=== PATIENT | male | born 1930 | race Caucasian/White ===

== ENCOUNTER 2017-12-16 11:17 | Inpatient (IN) | payer MEDICARE, OTHER ==
[~2017-12-16] VITALS: Ht 172.7 cm; Wt 104.1 kg
[~2017-12-16 11:17] MED LIST: ADULT LOW DOSE81 MG PO; ALEVE220 MG PO; ASPIRIN EC81 M1 PO; Alprazolam PO; CARVEDILOL3.125 MG PO; CEPHALEXIN 500500 M3 PO; COLACE 100 MG100 MG PO; COREG PO; COREG6.25 MG PO; DOXYCYCLINE HY100 M3 PO; FISH OIL 1,0001 EAC5 PO; FUROSEMIDE 40 M40 M1 PO; HYDROCODON-ACE1 EAC7 PO; HYDROXYCHLOROQ200 M1 PO; IRON325 PO; KEFLEX500 MG PO; LOVASTAT20 PO; METHOTREXATE; MEVACOR10 MG PO; MOBIC7.5 MG PO; MULTI VITAMIN1 EACH PO; NITROSTAT0.4 MG SUBLING; NORCO 5-325 TA1 EACH PO; ODORLESS GARLI500 MG PO; OMEPRAZOLE 20 M20 M1 PO; OMEPRAZOLE20 MG PO; OXYCODONE HCL5 M1 PO; POTASSIUM20; POTASSIUM20 PO; PRILOSEC40 MG PO; VENTOLIN17 GM INH; XANAX 0.5 MG0.5 M1 PO; XARELTO10 M1 PO; ZPAK PO
[2017-12-16 11:19] VITALS: BP 156/70
[2017-12-16 11:48] LABS: ABSOLUTE EOSINOPHILS 0.1 thou/uL (0.0-0.7); ABSOLUTE LYMPHOCYTES 1.6 thou/uL (0.8-5.3); ABSOLUTE MONOCYTES 0.4 thou/uL (0.0-1.2); ABSOLUTE NEUTROPHILS 2.8 thou/uL (1.6-8.1); BASOPHILS 0.7 %; HEMATOCRIT 35.6 % (42.0-52.0); HEMOGLOBIN 12.1 gm/dL (14.0-18.0); LYMPHOCYTES 31.6 %; MCH 33.5 pg (26.0-34.0); MCV 98.7 fL (80.0-100.0); MONOCYTES 8.3 %; MPV 7.9 fl. (7.2-11.1); NUCLEATED RBCS 0 /100WBC; PLATELET COUNT* 159 thou/uL (150-400); POLYS 56.4 %; RBC 3.61 mil/uL (4.50-6.00); RDW-CV 12.9 % (10.5-14.5); WBC 4.9 thou/uL (4.0-11.0)
[2017-12-16 11:54] LABS: ANION GAP 4 mmol/L (7-16); BUN 27 mg/dL (7-18); CHLORIDE 108 mmol/L (98-107); CO2 30 mmol/L (21-32); CREATININE 1.2 mg/dL (0.6-1.3); GLUCOSE 101 mg/dL (70-99); POTASSIUM 4.8 mmol/L (3.5-5.1); SODIUM 142 mmol/L (136-145)
[2017-12-16 11:55] LABS: APTT 26.6 Seconds (25.0-31.3); INR 1.1
[2017-12-16 12:05] LABS: ALBUMIN 3.6 g/dL (3.4-5.0); ALKALINE PHOSPHATASE 44 U/L (46-116); LIPASE 113 U/L (73-393); NT-PRO BRAIN NAT PEPTIDE 449 pg/mL (<300); SGOT 36 U/L (15-37); SGPT 47 U/L (30-65); TOTAL BILIRUBIN 0.7 mg/dL (<0.1-1.0); TOTAL PROTEIN 6.4 g/dL (6.4-8.2); TROPONIN-I LEVEL <0.06 ng/mL (<0.06)
--- NOTE | 2017-12-16 13:58 | EKG ---
[place] [address] ELECTROCARDIOGRAM REPORT Name: JESSI VILLEDA Room: [place] [address] ADM IN [facility].#: [id number] Admission: 12/16/17 Attend Phys: Kristie Layton Discharge: Date of : 34 Report #: [id number] THIS REPORT FOR: //name// [facility] ED Test Date: 2017-12-16 Test Time: 11:21:00 Pat Name: JESSI VILLEDA Department: Room: Gender: Superintendent Drivers: Rony PHIPPS : 1930 Requested By: Yaya Burkett Order Number: [id number] MD: Conor Ledezma Measurements Intervals [place] Rate: 70 P: ID: QRS: 64 QRSD: 109 T: 89 QT: 388 QTc: 419 Interpretive Statements sinus rhythm with first degree AV block Consider anterior infarct Nonspecific T abnormalities, lateral leads Baseline wander in lead(s) III Compared to ECG 08/03/2013 09:59:49 Myocardial infarct finding still present T-wave abnormality still present Electronically Signed On 12-16-2017 13:58:29 CDT by Conor Ledezma [email or web address] <ELECTRONICALLY SIGNED> By: Conor Ledezma MD, [facility] 12/16/17 1358 1121 1121 Conor Ledezma MD, [facility] /EPI
[2017-12-16 14:35] VITALS: BP 166/67
[2017-12-16 15:34] VITALS: BP 143/63
--- NOTE | 2017-12-16 15:43 | NUR ---
PT BROUGHT TO THE FLOOR AT 1440. OPT ORIENTED TO THE UNIT AND PLACED ON REAL ESTATE UTILIZATION OFFICER. PT VSS ON ROOM AIR AND NO C/O PAIN OR DISCOMFORT. NURSING ASSESSMENTSA COMPLETED AND CHATRED. NURSING WILL CONTINUR TO MONITOR FOR COMFORT AND SAFTEY.
[2017-12-16 16:08] VITALS: BP 143/64
--- NOTE | 2017-12-16 18:42 | NUR ---
ASSUMED CARE OF PT AFTER REPORT AT 1820. PT ALERT AN ORIENTEDX4. VSS. PHYSICALL ASSESSMENT COMPLETED. THIS NURSE AGREES WITH PREVIOUS NURSE ASSESSMENT. PT ON RA. PT IV LINE PATENT IN INTACT. PT UP ADLIB. SR 1ST DEGREE ON TELE. FOR CARDIAC STRESS TEST KIMMIE. PT INSTRUCTED NPO POST MIDNIGHT.PT DENIES ANY PAIN OR COMPLAINS AT THIS TIME.CALL LIGHT WITHIN REACH. WILL CONTINUE TO MONITOR PT.
[2017-12-16 20:00] VITALS: BP 124/72
[2017-12-16 23:30] VITALS: BP 125/56
--- NOTE | 2017-12-16 23:31 | NUR ---
RECEIVED REPORT AND ASSUMED CARE OF PATIENT AT 1930. EDUCATIONAL AIDE IN PLACE TRACING SR 1AVB. ASSESSMENT AND VITALS COMPLETED CHARTED, VSS ON ROOM AIR. PATIENT A&OX4. PATIENT DENIES CHEST PAIN. GOAL IS TO REMAIN FREE OF CHEST PAIN/DISCOMFORT. PATIENT TO HAVE STRESS TEST AND ECHO TOMORROW, NPO AFTER MIDNIGHT. PATIENT VERBALIZES UNDERSTANDING OF PLAN OF CARE. CALL LIGHT WITHIN REACH
[2017-12-17 03:30] VITALS: BP 121/56
--- NOTE | 2017-12-17 05:24 | NUR ---
PATIENT PROGRESSING TOWARDS GOALS: PATIENT REMAINS FREE OF CHEST PAIN/DISCOMFORT THROUGHOUT SHIFT. VSS ON ROOM AIR. PATIENT NPO FOR STRESS TEST THIS AM. PATIENT AWARE AND VERBALIZES UNDERSTANDING. HOURLY ROUNDING OBSERVED. CALL LIGHT WITHIN REACH
[2017-12-17 08:00] VITALS: BP 125/60
--- NOTE | 2017-12-17 11:00 | NUR ---
ASSUMED CARE OF PT AFTER REPORT AT 0730. PT A&OX4. VSS. PHYSICAL ASSESSMENT COMPLETED AND CHARTED. PT ON RA WITH 97% O2 SAT. SR 1ST DEG ON TELE. PT IV LINE PATENT AND INTACT. PT UP ADLIB. FOR STRESS TEST TODAY. DENIES ANY PAIN OR COMPLAINS AT THIS TIME. CALL LIGHT WITHIN REACH. WILL CONTINUE TO MONITOR PT.
[2017-12-17 11:10] VITALS: BP 144/65
--- NOTE | 2017-12-17 11:54 | NUR ---
Pt is A&O. Resides at home with his . Independent with ADLS. Pt has a walker at home that he can use if needed. Hx of outpt therapy. No hx of SNF. Supportive family. Pt scheduled to have a stress test and Echo today. Pt's goal is to return home once medically stable. Following.
--- NOTE | 2017-12-17 14:26 | 2DMMODE ---
[place] [address] 2 D/M-MODE ECHOCARDIOGRAM Name: JESSI VILLEDA Room: [address] IN [facility]#: [id number] Admission: 12/16/17 Attend Phys: Wilman Michaels Discharge: Date of : 34 Date of Service: 12/17/17 1425 Report #: [id number] THIS REPORT FOR: //name// APPROVED REPORT Study performed: 12/17/2017 10:15:25 EXAM: Comprehensive 2D, Doppler, and color-flow Echocardiogram Patient Location: In-Patient Room #: [facility] Status: routine BSA: 2.11 HR: 70 bpm BP: 121/56 mmHg Rhythm: NSR Other Information Study Quality: Fair Indications Chest Pain 2D Dimensions LVEF(%): 45.53 (>50%) IVSd: 13.96 (7-11mm) LVOT Diam: 18.54 (18-24mm) LVDd: 46.16 mm PWd: 10.75 (7-11mm) Ascending Ao: 30.70 (22-36mm) LVDs: 35.73 (25-40mm) Aortic Root: 34.51 mm Hawkins's LVEF: 45.53 % Volumes Left Atrial Volume (Systole) LA ESV Index: 45.00 mL/m2 Aortic Valve AoV Peak Ugo.: 2.18 m/s AO Peak Gr.: 19.00 mmHg LVOT Max P.29 mmHg AO Mean Gr.: 10.16 mmHg LVOT Mean P.96 mmHg LVOT Max V: 1.15 m/s AO V2 VTI: 47.25 cm LVOT Mean V: 0.80 m/s BRIJESH (VTI): 1.44 cm2 LVOT V1 VTI: 25.25 cm Mitral Valve E/A Ratio: 1.17 [place] [address] 2 D/M-MODE ECHOCARDIOGRAM Name: JESSI VILLEDA Room: [address] IN [facility]#: [id number] Admission: 12/16/17 Attend Phys: Wilman Michaels Discharge: Date of : 34 Date of Service: 12/17/17 1425 Report #: [id number] MV Decel. Time: 229.99 ms MV E Max Ugo.: 0.84 m/s MV PHT: 66.70 ms MVA (PHT): 3.30 cm2 TDI E/Lateral E': 8.40 E/Medial E': 9.33 Medial E' Ugo.: 0.09 m/s Lateral E' Ugo.: 0.10 m/s Pulmonary Valve PV Peak Ugo.: 1.12 m/s PV Peak Gr.: 5.06 mmHg Left Ventricle The left ventricle is normal size. akinesis noted of the apex Mild concentric left ventricular hypertrophy. Left ventricular systolic function is mildly decreased. LVEF is 40-45%. The left ventricular diastolic function is normal. Right Ventricle The right ventricle is normal size. The right ventricular systolic function is normal. Atria Left atrium is moderately dilated. The right atrium size is normal. Aortic Valve Bioprosthetic aortic valve is present. Mild aortic regurgitation. Mild aortic stenosis. Mitral Valve The mitral valve is normal in structure. Mild mitral regurgitation. No evidence of mitral valve stenosis. Tricuspid Valve The tricuspid valve is normal in structure. Unable to assess PA pressure. Trace tricuspid regurgitation. Pulmonic Valve Pulmonic valve is not well visualized. There is no pulmonic valvular regurgitation. Great Vessels The aortic root is normal in size. IVC is normal in size and collapses with >50% [place] [address] 2 D/M-MODE ECHOCARDIOGRAM Name: JESSI VILLEDA Room: [address] IN [facility]#: [id number] Admission: 12/16/17 Attend Phys: Wilman Michaels Discharge: Date of : 34 Date of Service: 12/17/17 1425 Report #: [id number] Pericardium There is no pericardial effusion. <Conclusion> akinesis noted of the apex Mild concentric left ventricular hypertrophy. LVEF is 40-45%. Left atrium is moderately dilated. Bioprosthetic aortic valve is present. Mild aortic stenosis. Mild aortic regurgitation. Mild mitral regurgitation. <ELECTRONICALLY SIGNED> By: Conor Ledezma MD, FACC 12/17/17 1425 1425 1425 Conor Ledezma MD, FACC /INF
[2017-12-17 15:27] VITALS: BP 159/53
[2017-12-17 17:16] VITALS: BP 159/53
--- NOTE | 2017-12-17 18:04 | CARDNUC ---
[place] [address] CARDIAC NUCLEAR IMAGING REPORT Name: JESSI VILLEDA Room: [address] IN [facility]#: [id number] Admission: 12/16/17 Attend Phys: Wilman Michaels Discharge: Date of : 34 Date of Service: 12/17/17 1804 Report #: [id number] THIS REPORT FOR: //name// APPROVED REPORT Study performed: 12/16/2017 16:13:00 Indication: chest pain Patient Location: In-Patient Room #: 209 Stress Tech: Mary Ann Barrett Stress Nurse: Yohana Asif RN Ht: 5 ft 8 in Wt: 216 lbs BSA: 2.11 m2 BMI: 32.83 Medical History Medical History: heart valve replacement, mi cabg, pci Medications: furosemide, [id number] Allergies: nkda Cardiac Risk Factors: age, family hx Previous Cardiac Procedures: cabg, valve replacement, pci Exercise History: Sedentary Resting Data Rest SPECT myocardial perfusion imaging was performed in supine position 30 minutes following the intravenous injection of 10.8 mCi of Tc-99m Sestamibi. Time of rest injection: 15:15 The images were gated to evaluate regional wall motion and calculate left ventricular ejection fraction. Administration Route: IV Administration Site: Left Arm Pharmacologic Stress Pharmacologic stress test was performed by injecting Regadenoson 0.4 mg IV push over 10-15 seconds immediately followed by the intravenous injection of 33.3 mCi of Tc-99m Sestamibi. Time of stress injection: 16:35 Administration Route: IV Administration Site: Left Arm Heart Rate at time of stress injection: 103 bpm. Gated Stress SPECT was performed 40 minutes after stress injection. The images were gated to evaluate regional [place] [address] CARDIAC NUCLEAR IMAGING REPORT Name: JESSI VILLEDA Room: [address]#: [id number] Admission: 12/16/17 Attend Phys: Wilman Michaels Discharge: Date of : 34 Date of Service: 12/17/17 1804 Report #: [id number] left ventricular ejection fraction. Stress Test Details Stress Test: Pharmacologic stress testing performed using 0.4 mg of regadenoson per 5 mL given IV over 10 seconds. Reason for pharmacologic stress test: physical limitation. HR Resting HR: 74 bpm Max Heart Rate (APMHR): 135 bpm Max HR Achieved: 103 bpm Target HR (85% APMHR): 114 bpm % of APMHR: 76 Recovery HR: 90 bpm BP Resting BP: 152/71 mmHg Max BP: 109/68 mmHg ECG Resting ECG: Sinus Rhythm Stress ECG: Sinus Tachycardia ST Change: None Arrhythmia: None Recovery ECG: Sinus Rhythm Recovery ST Change: None Recovery Arrhythmia: None Clinical Reason for Termination: Completed protocol Exercise duration: 0 min sec Exercise capacity: 1 METs The patient had no significant symptoms with Lexiscan infusion. Stress ECG Conclusion The baseline 12-lead electrocardiogram shows sinus rhythm without significant ST segment abnormality. EKGs obtained during and post Lexiscan infusion show sinus rhythm with no significant ST or T wave changes when compared to baseline. There were no stress-induced arrhythmias. Study Quality Study: Good Artifact: No artifact Study Data At rest, the left ventricular ejection fraction was 33%.. [place] [address] CARDIAC NUCLEAR IMAGING REPORT Name: JESSI VILLEDA Room: [address]#: [id number] Admission: 12/16/17 Attend Phys: Wilman Michaels Discharge: Date of : 34 Date of Service: 12/17/17 1804 Report #: [id number] Post stress, the left ventricular ejection was 39%.. TID = 0.97. Perfusion Perfusion images show a moderate size severe intensity defect that is fixed involving the entire apex. No other significant fixed or reversible defects identified. Wall Motion Gated images show akinesis of the apex. There is hypokinesis of the septum. 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 There is no evidence of ongoing ischemia. Left ventricular systolic function appears severely decreased with wall motion abnormalities as outlined above. Findings consistent with ischemic cardiomyopathy. This is a moderate risk study based on left ventricular systolic dysfunction. <Conclusion> The baseline 12-lead electrocardiogram shows sinus rhythm without significant ST segment abnormality. EKGs obtained during and post Lexiscan infusion show sinus rhythm with no significant ST or T wave changes when compared to baseline. There were no stress-induced arrhythmias. <ELECTRONICALLY SIGNED> By: Hernan Shukla MD, FACC 12/17/171803 03 03 Hernan Shukla MD, FACC /INF
--- NOTE | 2017-12-17 18:53 | NUR ---
STRESS TEST DONE-CAME NEGATIVE. DISCHARGE ORDER RECEIVED. IV LINE AND TRUCK LOADER DISCONTINUED. DISCHARGE EDUCATION GIVEN. COMMUNICATES UNDERSTANDING. PT WAITING FOR TO RETURN. REPORT GIVEN TO INCOMING SHIFT.
== END 2017-12-17 19:50 | disposition home or self-care (01) | DRG 293 ==
LOC: M.ERS 11:17 → M.TBA-ER 13:12 → M.2W 13:12
PROVIDERS: Emergency Medicine Emergency Medical Services; ADMIT Internal Medicine
DX: I50.43 Acute on chronic combined systolic (congestive) and diastolic (congestive) heart failure (principal); K21.9 Gastro-esophageal reflux disease without esophagitis; Z96.1 Presence of intraocular lens; I25.10 Atherosclerotic heart disease of native coronary artery without angina pectoris; E78.5 Hyperlipidemia, unspecified; I10 Essential (primary) hypertension; Z95.1 Presence of aortocoronary bypass graft; Z95.2 Presence of prosthetic heart valve; I25.2 Old myocardial infarction; Z85.828 Personal history of other malignant neoplasm of skin; Z98.42 Cataract extraction status, left eye; Z98.41 Cataract extraction status, right eye; Z79.82 Long term (current) use of aspirin; Z79.899 Other long term (current) drug therapy; Z95.5 Presence of coronary angioplasty implant and graft; Z82.49 Family history of ischemic heart disease and other diseases of the circulatory system

== ENCOUNTER 2018-07-18 11:47 | Inpatient (IN) | payer MEDICARE, OTHER ==
[~2018-07-18] VITALS: Ht 172.7 cm; Wt 107.0 kg
[~2018-07-18 11:47] MED LIST changes: +ODORLESS GARL1250 MG PO; -ODORLESS GARLI500 MG PO
[2018-07-18 11:57] VITALS: BP 139/61
[2018-07-18] MEDS ORDERED: FLOMAX0.4 MG PO (12:08)
[2018-07-18 12:39] LABS: ABSOLUTE EOSINOPHILS 0.1 thou/uL (0.0-0.7); ABSOLUTE LYMPHOCYTES 1.5 thou/uL (0.8-5.3); ABSOLUTE MONOCYTES 0.3 thou/uL (0.0-1.2); ABSOLUTE NEUTROPHILS 2.5 thou/uL (1.6-8.1); BASOPHILS 0.8 %; EOSINOPHILS 2.9 %; HEMATOCRIT 37.7 % (42.0-52.0); LYMPHOCYTES 32.7 %; MCH 33.9 pg (26.0-34.0); MCHC 34.5 g/dL (28.0-37.0); MCV 98.2 fL (80.0-100.0); MONOCYTES 7.6 %; MPV 7.8 fl. (7.2-11.1); NUCLEATED RBCS 0 /100WBC; PLATELET COUNT* 148 thou/uL (150-400); RBC 3.84 mil/uL (4.50-6.00); RDW-CV 13.2 % (10.5-14.5); WBC 4.5 thou/uL (4.0-11.0)
[2018-07-18 12:47] LABS: CALCIUM 8.9 mg/dL (8.5-10.1); CREATININE 1.1 mg/dL (0.6-1.3); POTASSIUM 4.5 mmol/L (3.5-5.1)
[2018-07-18 12:49] LABS: APTT 26.6 Seconds (25.0-31.3); PROTIME 10.7 Seconds (9.20-11.50)
[2018-07-18 12:58] LABS: ALBUMIN 3.2 g/dL (3.4-5.0); TOTAL BILIRUBIN 0.5 mg/dL (<0.1-1.0); TOTAL PROTEIN 6.5 g/dL (6.4-8.2)
[2018-07-18 16:31] VITALS: BP 148/73
[2018-07-18 17:00] VITALS: BP 167/65
--- NOTE | 2018-07-18 17:41 | NUR ---
PATIENT ADMITTED TO ROOM 305 VIA CART FROM ER AT 1650. PATIENT A/O X 4. ADMISSION ASSESSMENT AND HISTORY OBTAINED. VITALS STABLE ON ROOM AIR. ORIENTED NO OPEN WOUNDS OR REDNESS NOTED TO BILATERAL LOWER LEGS, PITTING EDEMA NOTED TO LEFT LEG. PULSES WEAK TO BILATERAL FEET. VANCOMYCIN CURRENTLY INFSUSING. ORTHO CONSULT NOTED. FAMILY AT BEDSIDE. ORIENTED TO ROOM AND ENVIRONMENT. CALL LIGHT WITHIN REACH. WILL CONTINUE WITH PLAN OF CARE.
[2018-07-18 20:00] VITALS: BP 135/71
[2018-07-19 04:49] LABS: ABSOLUTE EOSINOPHILS 0.2 thou/uL (0.0-0.7); ABSOLUTE MONOCYTES 0.5 thou/uL (0.0-1.2); ABSOLUTE NEUTROPHILS 2.3 thou/uL (1.6-8.1); BASOPHILS 0.4 %; EOSINOPHILS 3.3 %; HEMATOCRIT 35.8 % (42.0-52.0); HEMOGLOBIN 12.4 gm/dL (14.0-18.0); LYMPHOCYTES 39.4 %; MCH 34.2 pg (26.0-34.0); MCHC 34.5 g/dL (28.0-37.0); MCV 99.2 fL (80.0-100.0); MONOCYTES 9.7 %; MPV 8.6 fl. (7.2-11.1); NUCLEATED RBCS 0 /100WBC; PLATELET COUNT* 135 thou/uL (150-400); POLYS 47.2 %; RBC 3.61 mil/uL (4.50-6.00)
[2018-07-19 05:00] LABS: CALCIUM 8.7 mg/dL (8.5-10.1); CREATININE 1.1 mg/dL (0.6-1.3); POTASSIUM 4.5 mmol/L (3.5-5.1)
--- NOTE | 2018-07-19 05:37 | NUR ---
PT SLEPT ON AND OFF THIS SHIFT. ASSESSMENT DOCUMENTED. MEDS GIVEN PER E-AUG. PT REPORTED PAIN ONLY WITH WALKING. IV PATENT, ABX INFUSED. PT TAKEN TO XRAY AT BEGINING OF SHIFT. WILL CONTINUE WITH PLAN OF CARE.
[2018-07-19 08:12] VITALS: BP 136/63
--- NOTE | 2018-07-19 11:11 | NUR ---
SW met with pt to complete initial assessment, introduce self, and SW role. Pt alert, oriented, pleasant. Pt lives at home with his . Pt had a RW at one time but no longer has it and has a cane if needed for ambulation. Pt has hx of OP therapy. Pt does not anticipate any dc needs at this time. SW to continue to follow to assist with safe dc planning.
[2018-07-19 11:50] VITALS: BP 161/77
[2018-07-19] MEDS ORDERED: XANAX1 MG PO (12:30)
[2018-07-19 13:11] VITALS: BP 161/77
--- NOTE | 2018-07-19 13:52 | NUR ---
ASSESSMENT COMPLETE. PT ALERT AND ORIENTED X4. PT REPORTS PAIN WITH AMBULATING, DENIES NEED FOR PAIN MEDICATION THIS AM. VASCULAR ROUNDED AND NOT DOING ANYTHING AT THIS TIME. PULSES STRONG WITH DOPPLER. PT GIVEN DISCHARGE TO HOME, DISCHARGE INSTRUCTIONS GIVEN AND PT VERBALIZES UNDERSTANDING. PRESCRIPTION GIVEN. IV TAKEN OUT WITHOUT ANY COMPLICATIONS. PT IS UP STANDBY WITH CANE. ALL BELONGINGS SENT WITH PT. SEE ASSESSMENT AND VITALS FOR OTHER DETAILS.
== END 2018-07-19 14:00 | disposition home or self-care (01) | DRG 603 ==
LOC: M.ERS 11:47 → M.TBA-ER 12:58 → M.3W 12:58
PROVIDERS: Nurse Practitioner Family; ADMIT Internal Medicine
DX: L03.116 Cellulitis of left lower limb (principal); M19.90 Unspecified osteoarthritis, unspecified site; I73.9 Peripheral vascular disease, unspecified; I87.2 Venous insufficiency (chronic) (peripheral); K21.9 Gastro-esophageal reflux disease without esophagitis; I25.10 Atherosclerotic heart disease of native coronary artery without angina pectoris; Z96.652 Presence of left artificial knee joint; M47.896 Other spondylosis, lumbar region; I10 Essential (primary) hypertension; Z96.1 Presence of intraocular lens; Z95.1 Presence of aortocoronary bypass graft; Z95.2 Presence of prosthetic heart valve; I25.2 Old myocardial infarction; Z85.828 Personal history of other malignant neoplasm of skin; Z79.82 Long term (current) use of aspirin; Z79.899 Other long term (current) drug therapy; Z98.42 Cataract extraction status, left eye; Z98.41 Cataract extraction status, right eye

== ENCOUNTER 2020-03-15 22:27 | Inpatient (IN) | payer MEDICARE, OTHER ==
[~2020-03-15] VITALS: Ht 167.6 cm; Wt 102.5 kg
[~2020-03-15 22:27] MED LIST changes: +FLOMAX0.4 MG PO; +XANAX1 MG PO
[2020-03-15 22:34] VITALS: BP 153/70
[2020-03-15] MEDS ORDERED: PLAQUENIL200 MG PO (22:45)
[2020-03-15 23:41] LABS: URINE BILIRUBIN NEGATIVE (Negative); URINE BLOOD NEGATIVE (Negative); URINE CLARITY CLEAR; URINE COLOR YELLOW; URINE GLUCOSE-RANDOM NEGATIVE (Negative); URINE KETONES NEGATIVE (Negative); URINE LEUKOCYTES-REFLEX NEGATIVE (Negative); URINE NITRITE-REFLEX NEGATIVE (Negative); URINE PROTEIN NEGATIVE (Negative); URINE SPECIFIC GRAVITY 1.025 (1.005-1.030); URINE UROBILINOGEN 0.2 E.U./dl (0.2-1.0)
[2020-03-15 23:54] LABS: ABSOLUTE BASOPHILS 0.1 thou/uL (0.0-0.2); ABSOLUTE EOSINOPHILS 0.1 thou/uL (0.0-0.7); ABSOLUTE LYMPHOCYTES 1.7 thou/uL (0.8-5.3); ABSOLUTE MONOCYTES 0.4 thou/uL (0.0-1.2); ABSOLUTE NEUTROPHILS 3.3 thou/uL (1.6-8.1); BASOPHILS 1.1 %; EOSINOPHILS 2.5 %; HEMATOCRIT 39.7 % (42.0-52.0); LYMPHOCYTES 30.6 %; MCH 34.1 pg (26.0-34.0); MCHC 35.2 g/dL (28.0-37.0); MCV 96.9 fL (80.0-100.0); MONOCYTES 7.5 %; MPV 7.4 fl. (7.2-11.1); NUCLEATED RBCS 0 /100WBC; PLATELET COUNT* 153 thou/uL (150-400); POLYS 58.3 %; RBC 4.09 mil/uL (4.50-6.00); RDW-CV 13.6 % (10.5-14.5); WBC 5.7 thou/uL (4.0-11.0)
[2020-03-16 00:04] LABS: CALCIUM 8.9 mg/dL (8.5-10.1); CREATININE 1.4 mg/dL (0.6-1.3); POTASSIUM 4.7 mmol/L (3.5-5.1)
[2020-03-16 00:05] LABS: APTT 25.2 Seconds (25.0-31.3); PROTIME 10.7 Seconds (9.20-11.50)
[2020-03-16 00:08] LABS: ALBUMIN 3.7 g/dL (3.4-5.0); TOTAL BILIRUBIN 0.5 mg/dL (<0.1-1.0); TOTAL PROTEIN 6.7 g/dL (6.4-8.2)
[2020-03-16 02:09] VITALS: BP 147/75
[2020-03-16 02:54] VITALS: BP 116/80
[2020-03-16 08:00] VITALS: BP 177/76
[2020-03-16 10:20] LABS: HDL CHOLESTEROL 77 mg/dL (>40); TRIGLYCERIDE 62 mg/dL (<150); VLDL 12 mg/dL (<40)
[2020-03-16 10:31] LABS: CHOLESTEROL 16 mg/dL (<200); LDL CHOLESTEROL -73 mg/dL (<100); SERUM ASSESSMENT Clear; TC:HDL 0.2 Ratio (Not establshd)
[2020-03-16 13:36] VITALS: BP 123/53
[2020-03-16 14:35] LABS: AMP/METHAMP Negative (Negative); BARBITURATES Negative (Negative); BENZODIAZEPINES Negative (Negative); COCAINE Negative (Negative); METHADONE Negative (Negative); OPIATES Negative (Negative); PCP Negative (Negative); THC Negative (Negative)
[2020-03-16 19:28] VITALS: BP 128/71
[2020-03-16 20:00] VITALS: BP 129/64
[2020-03-17 00:23] VITALS: BP 140/64
[2020-03-17 04:14] VITALS: BP 123/65
[2020-03-17 04:48] LABS: HEMATOCRIT 37.4 % (42.0-52.0); HEMOGLOBIN 13.1 gm/dL (14.0-18.0); MCH 33.8 pg (26.0-34.0); MCV 96.7 fL (80.0-100.0); MPV 7.8 fl. (7.2-11.1); RBC 3.87 mil/uL (4.50-6.00); RDW-CV 13.5 % (10.5-14.5); WBC 4.9 thou/uL (4.0-11.0)
[2020-03-17 05:16] LABS: ALBUMIN 3.2 g/dL (3.4-5.0); ALKALINE PHOSPHATASE 49 U/L (46-116); ANION GAP 6 mmol/L (7-16); BUN 21 mg/dL (7-18); CALCIUM 8.6 mg/dL (8.5-10.1); CHLORIDE 104 mmol/L (98-107); CHOLESTEROL 151 mg/dL (<200); CO2 31 mmol/L (21-32); CREATININE 1.3 mg/dL (0.6-1.3); GLUCOSE 87 mg/dL (70-99); HDL CHOLESTEROL 70 mg/dL (>40); LDL CHOLESTEROL 70 mg/dL (<100); MAGNESIUM 1.9 mg/dL (1.8-2.4); POTASSIUM 3.8 mmol/L (3.5-5.1); SGOT 26 U/L (15-37); SGPT 36 U/L (30-65); SODIUM 141 mmol/L (136-145); TC:HDL 2.2 Ratio (Not establshd); TOTAL BILIRUBIN 0.7 mg/dL (<0.1-1.0); TRIGLYCERIDE 55 mg/dL (<150); VLDL 11 mg/dL (<40)
[2020-03-17 05:18] LABS: SERUM ASSESSMENT Clear
[2020-03-17 05:36] LABS: GLYCOHEMOGLOBIN (HGB A1C) 5.5 % (4.8-5.6)
[2020-03-17 08:00] VITALS: BP 135/66
[2020-03-17 12:00] VITALS: BP 130/67
[2020-03-17 16:09] VITALS: BP 142/79
[2020-03-17 20:00] VITALS: BP 140/76
[2020-03-18] VITALS (7 sets, daily range): BP systolic 131–168; BP diastolic 52–84
[2020-03-18 05:20] LABS: HEMATOCRIT 39.2 % (42.0-52.0); HEMOGLOBIN 13.5 gm/dL (14.0-18.0); MCH 33.4 pg (26.0-34.0); MCHC 34.5 g/dL (28.0-37.0); MCV 96.6 fL (80.0-100.0); MPV 7.6 fl. (7.2-11.1); RBC 4.06 mil/uL (4.50-6.00); RDW-CV 13.4 % (10.5-14.5)
[2020-03-18 05:32] LABS: ALBUMIN 3.4 g/dL (3.4-5.0); CALCIUM 8.9 mg/dL (8.5-10.1); CREATININE 1.3 mg/dL (0.6-1.3); POTASSIUM 4.1 mmol/L (3.5-5.1); TOTAL BILIRUBIN 0.9 mg/dL (<0.1-1.0); TOTAL PROTEIN 6.4 g/dL (6.4-8.2)
[2020-03-18 05:49] LABS: APTT 26.1 Seconds (25.0-31.3); INR 1.1
--- NOTE | 2020-03-18 14:12 | EKG ---
[place] [address] ELECTROCARDIOGRAM REPORT Name: JESSI VILLEDA Room: [address] ADM IN [facility].#: [id number] Admission: 03/18/20 Attend Phys: Tiffani Sheldon, Discharge: Date of : 34 Date of Service: 03/16/20 0045 Report #: [id number] THIS REPORT FOR: //name// [facility] ED Test Date: 2020-03-16 Test Time: 00:45:51 Pat Name: JESSI VILLEDA Department: Room: [facility] Gender: M Food Mobile Driver: CASSIUS : 1930 Requested By: Kristi Ervin Order Number: [id number] MD: Randolph Corbett Measurements Intervals [place] Rate: 60 P: CO: QRS: 49 QRSD: 116 T: 94 QT: 425 QTc: 425 Interpretive Statements Junctional rhythm Nonspecific intraventricular conduction delay Nonspecific T abnrm, anterolateral leads Baseline wander in lead(s) V4 Compared to ECG 12/16/2017 11:21:00 Junctional rhythm now present Intraventricular conduction delay now present Sinus rhythm no longer present First degree AV block no longer present Myocardial infarct finding no longer present T-wave abnormality no longer present Electronically Signed On 03-18-2020 14:12:17 CDT by Randolph Corbett [email or web address] <ELECTRONICALLY SIGNED> By: Randolph Corbett MD, [facility] 03/18/20 1412 0045 0045 Randolph Corbett MD, [facility] /EPI
--- NOTE | 2020-03-18 15:44 | 2DMMODE ---
[place] [address] 2 D/M-MODE ECHOCARDIOGRAM Name: JESSI VILLEDA Room: [address] IN [facility].#: [id number] Admission: 03/18/20 Attend Phys: Tiffani Sheldon, Discharge: Date of : 34 Date of Service: 03/18/20 1544 Report #: [id number] THIS REPORT FOR: cc: Dusty Peralta,Dusty Rios,Randolph Dunbar MD [facility] ~ APPROVED REPORT Study performed: 03/18/2020 13:38:49 EXAM: Comprehensive 2D, Doppler, and color-flow Echocardiogram Patient Location: Bedside BSA: 2.07 HR: 78 bpm BP: 148/70 mmHg Other Information Study Quality: Technically Difficult Indications CVA/TIA Echo Enhancing Agent Indication: Rule out Shunt Agent(s) / Amount(s) Used: Agitated Saline cc 2D Dimensions IVSd: 16.60 (7-11mm) LVOT Diam: 18.99 (18-24mm) LVDd: 44.28 mm PWd: 16.66 (7-11mm) Ascending Ao: 25.47 (22-36mm) LVDs: 40.88 (25-40mm) Aortic Root: 32.44 mm Volumes Left Atrial Volume (Systole) LA ESV Index: 24.60 mL/m2 Aortic Valve AoV Peak Ugo.: 0.70 m/s AO Peak Gr.: 1.94 mmHg LVOT Max P.08 mmHg AO Mean Gr.: 1.15 mmHg LVOT Mean P.16 mmHg LVOT Max V: 0.72 m/s AO V2 VTI: 15.94 cm LVOT Mean V: 0.50 m/[place] [address] 2 D/M-MODE ECHOCARDIOGRAM Name: JESSI VILLEDA Room: [address] IN .R.#: [id number] Admission: 03/18/20 Attend Phys: Tiffani Sheldon, Discharge: Date of : 34 Date of Service: 03/18/20 1544 Report #: [id number] BRIJESH (VTI): 2.93 cm2 LVOT V1 VTI: 16.50 cm Mitral Valve E/A Ratio: 1.08 MV Decel. Time: 215.48 ms MV E Max Ugo.: 0.53 m/s MV PHT: 62.49 ms MVA (PHT): 3.52 cm2 TDI E/Lateral E': 6.63 E/Medial E': 5.30 Medial E' Ugo.: 0.10 m/s Lateral E' Ugo.: 0.08 m/s Pulmonary Valve PV Peak Ugo.: 0.66 m/s PV Peak Gr.: 1.74 mmHg Tricuspid Valve RAP Estimate: 5.00 mmHg TR Peak Gr.: 4.93 mmHg RVSP: 9.93 mmHg PA Pressure: 9.93 mmHg Left Ventricle The left ventricle is normal size. Borderline concentric left ventricular hypertrophy. Left ventricular systolic function is normal. LVEF is 55%. Right Ventricle The right ventricle is normal size. The right ventricular systolic function is normal. Atria The left atrium size is normal. Interatrial septum not well visualized. Injection of bubbles is not conclusive due to suboptimal image quality. The right atrium size is normal. Aortic Valve The aortic valve is normal in structure. Bioprosthetic aortic valve is present. No aortic regurgitation is present. No hemodynamically significant valvular aortic stenosis. Mitral Valve The mitral valve is normal in structure. There is no mitral valve regurgitation noted. No evidence of mitral valve stenosis[place] [address] 2 D/M-MODE ECHOCARDIOGRAM Name: JESSI VILLEDA Room: [address] IN [facility].#: [id number] Admission: 03/18/20 Attend Phys: Tiffani Sheldon, Discharge: Date of : 34 Date of Service: 03/18/20 1544 Report #: [id number] The tricuspid valve is normal in structure. There is no tricuspid valve regurgitation noted. Pulmonic Valve The pulmonary valve is normal in structure. There is no pulmonic valvular regurgitation. Great Vessels The aortic root is normal in size. IVC is not well visualized. Pericardium There is no pericardial effusion. <Conclusion> The left ventricle is normal size. Borderline concentric left ventricular hypertrophy. Left ventricular systolic function is normal. LVEF is 55%. The right ventricle is normal size. The left atrium size is normal. Bioprosthetic aortic valve is present. No hemodynamically significant valvular aortic stenosis. No aortic regurgitation is present. The mitral valve is normal in structure. The tricuspid valve is normal in structure. There is no pericardial effusion. Interatrial septum not well visualized. Injection of bubbles is not conclusive due to suboptimal image quality. <ELECTRONICALLY SIGNED> By: Randolph Corbett MD, FACC 03/18/20 1544 1544 1544 Randolph Corbett MD, FACC /INF
[2020-03-19 04:00] VITALS: BP 144/69
[2020-03-19 07:50] VITALS: BP 151/92
[2020-03-19] MEDS ORDERED: PLAVIX 75 MG TA75 M1 PO (09:58)
[2020-03-19] MEDS ORDERED: LIPITOR40 MG PO (09:58)
[2020-03-19 12:18] VITALS: BP 159/68
[2020-03-19 16:08] VITALS: BP 142/75
[2020-03-19 20:00] VITALS: BP 113/65
[2020-03-19 23:35] VITALS: BP 131/56
[2020-03-20 04:06] VITALS: BP 146/65
[2020-03-20 08:00] VITALS: BP 143/77
[2020-03-20 12:48] VITALS: BP 114/65
[2020-03-20 13:25] VITALS: BP 114/65
[2020-03-20 13:33] VITALS: BP 114/65
== END 2020-03-20 15:13 | disposition home or self-care (01) | DRG 64 ==
LOC: M.ERS 22:27 → M.TBA-ER 03-16 00:21 → M.2W 03-16 01:25
PROVIDERS: Personal Emergency Response Attendant; Psychiatry & Neurology Neurology; ADMIT Internal Medicine; ATTEND Internal Medicine
DX: I63.312 Cerebral infarction due to thrombosis of left middle cerebral artery (principal); G93.41 Metabolic encephalopathy; R47.01 Aphasia; I25.2 Old myocardial infarction; I10 Essential (primary) hypertension; K21.9 Gastro-esophageal reflux disease without esophagitis; I65.22 Occlusion and stenosis of left carotid artery; M19.90 Unspecified osteoarthritis, unspecified site; Z96.652 Presence of left artificial knee joint; Z95.2 Presence of prosthetic heart valve; Z98.49 Cataract extraction status, unspecified eye; Z95.1 Presence of aortocoronary bypass graft; Z79.82 Long term (current) use of aspirin; Z79.899 Other long term (current) drug therapy; Z20.828 Contact with and (suspected) exposure to other viral communicable diseases; Z23 Encounter for immunization

== ENCOUNTER 2020-04-06 20:16 | Emergency (ER) | payer MEDICARE, OTHER ==
[~2020-04-06] VITALS: Ht 170.2 cm; Wt 104.3 kg
[~2020-04-06 20:16] MED LIST changes: +LIPITOR40 MG PO; +PLAQUENIL200 MG PO; +PLAVIX 75 MG TA75 M1 PO
[2020-04-06 20:57] LABS: ABSOLUTE EOSINOPHILS 0.1 thou/uL (0.0-0.7); ABSOLUTE LYMPHOCYTES 1.3 thou/uL (0.8-5.3); ABSOLUTE MONOCYTES 0.6 thou/uL (0.0-1.2); ABSOLUTE NEUTROPHILS 5.8 thou/uL (1.6-8.1); BASOPHILS 0.5 %; EOSINOPHILS 1.7 %; HEMATOCRIT 37.5 % (42.0-52.0); HEMOGLOBIN 12.8 gm/dL (14.0-18.0); LYMPHOCYTES 16.3 %; MCH 33.2 pg (26.0-34.0); MCHC 34.2 g/dL (28.0-37.0); MCV 97.2 fL (80.0-100.0); MONOCYTES 8.2 %; MPV 7.6 fl. (7.2-11.1); NUCLEATED RBCS 0 /100WBC; PLATELET COUNT* 154 thou/uL (150-400); POLYS 73.3 %; RBC 3.86 mil/uL (4.50-6.00); RDW-CV 13.2 % (10.5-14.5); WBC 7.9 thou/uL (4.0-11.0)
[2020-04-06 21:05] LABS: CALCIUM 8.9 mg/dL (8.5-10.1); CREATININE 1.5 mg/dL (0.6-1.3); POTASSIUM 4.1 mmol/L (3.5-5.1)
[2020-04-06 21:07] LABS: APTT 26.1 Seconds (25.0-31.3); PROTIME 10.8 Seconds (9.20-11.50)
[2020-04-06 21:10] LABS: ALBUMIN 3.6 g/dL (3.4-5.0); TOTAL BILIRUBIN 0.6 mg/dL (<0.1-1.0); TOTAL PROTEIN 6.8 g/dL (6.4-8.2)
[2020-04-06] MEDS ORDERED: KEFLEX500 M1 PO (22:26)
[2020-04-06 22:38] VITALS: BP 116/54
--- NOTE | 2020-04-08 13:36 | EKG ---
[place] [address] ELECTROCARDIOGRAM REPORT Name: JESSI VILLEDA Room: [facility]#: [id number] Admission: 04/06/20 Attend Phys: Discharge: 04/06/20 Date of : 34 Date of Service: 04/06/202104 Report #: [id number] THIS REPORT FOR: //name// [facility] ED Test Date: 2020-04-06 Test Time: 21:05:19 Pat Name: JESSI VILLEDA Department: Room: Gender: Vocal Music Instructor: [place] : 1930 Requested By: Kristi Ervin Order Number: [id number] MD: Conor Ledezma Measurements Intervals [place] Rate: 77 P: [place]: QRS: 56 QRSD: 118 T: 63 QT: 404 QTc: 458 Interpretive Statements sinus rhythm with first degree AV block Nonspecific intraventricular conduction delay Baseline wander in lead(s) V2 Compared to ECG 03/16/2020 00:45:51 no change Electronically Signed On 04-08-2020 13:36:40 CDT by Conor Ledezma [email or web address] <ELECTRONICALLY SIGNED> By: Conor Ledezma MD, FACC 04/08/20 1336 04 04 Conor Ledezma MD, FAC /EPI
== END 2020-04-06 22:40 | disposition home or self-care (01) ==
LOC: M.ERS 20:16
PROVIDERS: Personal Emergency Response Attendant
DX: L03.115 Cellulitis of right lower limb (principal); K21.9 Gastro-esophageal reflux disease without esophagitis; Z86.73 Personal history of transient ischemic attack (TIA), and cerebral infarction without residual deficits; Z85.828 Personal history of other malignant neoplasm of skin; Z96.652 Presence of left artificial knee joint